=== PATIENT | male | born 1955 | race Two or more races ===

== ENCOUNTER 2020-04-25 13:39 | Emergency (ER) | payer MEDICARE, MEDICAID ==
[~2020-04-25] VITALS: Ht 167.6 cm; Wt 68.0 kg
[~2020-04-25 13:39] MED LIST: CEPHALEXIN500 MG ORAL; FLOMAX0.4 MG ORAL; IBUPROFEN600 M1 ORAL
[2020-04-25 14:00] VITALS: BP 127/81
--- NOTE | 2020-04-25 14:10 | NUR ---
ED Nurse Note: pt presents to ED from home c/o abd pain and CP. pt reports that the pain is in his R chest and is TTP, denies dyspnea at this time. pt was seen and treated for UTI previously, has been taking abx for a couple days. pt states that he was sleeping when CP began, has been taking ibuprofen at home with mild relief of symptoms. pain in abd is on the L side, pt also has dysuria at this time. pt is noted to be febrile, denies cough or SOB, no N/V/D
[2020-04-25] MEDS ORDERED: Ketorolac 30mg Inj IV ONE (14:30)
[2020-04-25] MEDS ORDERED: Omnipaque-300 100ml vial INJ PRN (14:30)
[2020-04-25] MEDS ORDERED: Acetaminophen 500mg (ES) tab ORAL ONE (14:30)
--- NOTE | 2020-04-25 14:30 | NUR ---
ED Nurse Note: pt is taking ibuprofen 800mg, tamsulosin and cephalexin for UTI symptoms
[2020-04-25 14:37] LABS: BASOPHILS % (AUTO) 1.2 % (0.0-2.0); EOSINOPHILS % (AUTO) 0.2 % (0.0-3.0); HEMATOCRIT 39.6 % (42.0-52.0); HEMOGLOBIN 13.3 G/DL (14.2-18.0); LYMPHOCYTES % (AUTO) 17.4 % (20.0-45.0); MEAN CORPUSCULAR VOLUME 91 FL (80-99); MONOCYTES % (AUTO) 7.2 % (1.0-10.0); PLATELET COUNT 113 K/UL (150-450); RED BLOOD COUNT 4.34 M/UL (4.70-6.10); RED CELL DISTRIBUTION WIDTH 12.5 % (11.6-14.8)
[2020-04-25 14:39] LABS: APPEARANCE,URINE SLIGHTLY CLOUDY; BILIRUBIN, URINE NEGATIVE (NEGATIVE); GLUCOSE, URINE (UA) NEGATIVE (NEGATIVE); KETONES,URINE 1+ (NEGATIVE); LEUKOCYTE ESTERASE ,URINE 3+ (NEGATIVE); NITRITE,URINE NEGATIVE (NEGATIVE); PH,URINE 6.5 (4.5-8.0); PROTEIN,URINE 2+ (NEGATIVE); UROBILINOGEN,URINE 1 MG/DL (0.0-1.0)
[2020-04-25 14:47] LABS: ANION GAP 12 mmol/L (5-15); BLOOD UREA NITROGEN 12 mg/dL (7-18); CALCIUM 8.1 MG/DL (8.5-10.1); CARBON DIOXIDE 21 MMOL/L (21-32); CHLORIDE 99 MMOL/L (98-107); CREATININE 1.1 MG/DL (0.55-1.30); POTASSIUM 4.3 MMOL/L (3.5-5.1); SODIUM 132 MMOL/L (136-145)
[2020-04-25 14:52] LABS: ALANINE AMINOTRANSFERASE 88 U/L (12-78); ALBUMIN/GLOBULIN RATIO 0.7 (1.0-2.7); ALKALINE PHOSPHATASE 96 U/L (46-116); ASPARTATE AMINO TRANSFERASE 65 U/L (15-37); BILIRUBIN,TOTAL 0.7 MG/DL (0.2-1.0)
[2020-04-25 14:53] LABS: COLOR,URINE YELLOW
--- NOTE | 2020-04-25 15:42 | NUR ---
ED Nurse Note: pt transported to CT via [facility]
--- NOTE | 2020-04-25 16:25 | Diagnostic Imaging Report ---
CT ABDOMEN AND PELVIS WITH CONTRAST INDICATION: Abdominal pain TECHNIQUE: Continuous helical transaxial imaging of the abdomen and pelvis was obtained from the lung bases to the pubic symphysis during intravenous contrast administration. Coronal 2-D reformats were also obtained. Study obtained in a Siemens sensation [address] Automatic Exposure Control was utilized. Total Dose length Product (DLP): 327.[address] Dose Index Volume (CTDIvol): 6.1 mGy COMPARISON: None FINDINGS: Lower chest:: Bibasilar right greater than left subsegmental atelectasis. Small hiatal hernia. Hepatobiliary:: Subcentimeter focal hypodensity in the peripheral right lobe is too small to accurately characterize on this examination. Gallbladder is unremarkable. Genitourinary:: Large left parapelvic cyst with resulting left renal caliectasis. The prostate is enlarged, and demonstrates abnormally prominent prosthetic urethral orifice. Adrenals:: Unremarkable. Pancreas:: Unremarkable. Gastrointestinal:: Appendix is normal. No evidence of obstruction. Scattered colonic diverticulosis without evidence of acute diverticulitis. Spleen: : Unremarkable. Peritoneum:: Unremarkable. Bones and soft tissues:: There are multilevel discogenic degenerative changes of the visualized spine. There is grade 1 anterolisthesis of L5 on S1 with associated bilateral pars fractures. There is approximately 25% loss of body height of L5, with associated endplate sclerosis. IMPRESSION: 1. Concentrically thickened urinary bladder wall, which may be due to chronic lateral obstruction but urinalysis is recommended to exclude cystitis. 2. Enlarged prostate with abnormal appearance of the prostatic urethra; correlation for history of transurethral procedure is recommended. Otherwise, consider further evaluation with cystoscopy, as prostatic malignancy or bladder wall mass cannot be excluded. 3. L5 compression fracture with associated grade 1 anterolisthesis and bilateral pars fractures, likely chronic given degree of associated sclerosis. 4. Colonic diverticulosis without evidence of acute diverticulitis. 5. Large left parapelvic cyst with resulting renal caliectasis, presumably secondary to mass effect on the ureteropelvic junction. The CT scanner at [facility] is accredited by the [employer] and the scans are performed using protocols designed to limit radiation exposure to as low as reasonably achievable to attain images of sufficient resolution adequate for diagnostic evaluation.
--- NOTE | 2020-04-25 16:41 | Diagnostic Imaging Report ---
Indication: Reason For Exam: Chest pain Technique: Single AP view of the chest. Comparison: None. Findings: The cardiomediastinal silhouette is within normal limits. There is no focal consolidation, pneumothorax or pleural effusion. There is mild diffuse peribronchial thickening. Osseous structures demonstrate no acute abnormality. IMPRESSION: Mild diffuse peribronchial thickening in the absence of airspace consolidation, which is a nonspecific finding but can be seen in association with infectious/inflammatory airways disease in the appropriate clinical context.
[2020-04-25 17:03] VITALS: BP 135/76
--- NOTE | 2020-04-25 17:03 | NUR ---
ER DISCHARGE NOTE: Patient is cleared to be discharged per ERMD, pt is aox4, on room air, with stable vital signs. pt was given dc instructions, pt was able to verbalize understanding, pt id band and iv site removed without complications. pt is able to ambulate with steady gait. pt took all belongings.
--- NOTE | 2020-04-25 17:31 | Emergency Room Report ---
History of Present Illness General Chief Complaint: Chest Pain Source: Patient Present Illness HPI 65-year-old male presents to the ED for evaluation. States he has been having chest pain since this morning. Left-sided, dull, 6 out of 10, nonradiating. Denies cough. Denies shortness of breath. Seen here yesterday for a UTI. Was prescribed antibiotics. He has been compliant with the medications. Has a fever. No other aggravating relieving factors. Denies any other associated symptoms Allergies: Coded Allergies: No Known Allergies (Unverified , 04/23/20) COVID-19 Screening Contact w/high risk pt: No Experienced COVID-19 symptoms?: Yes COVID-19 Testing performed [employer] RN: No Patient History Past Medical History: none Past Surgical History: none Pertinent Family History: none Social History: Denies: smoking, alcohol use, drug use Immunizations: UTD Reviewed Nursing Documentation: PMH: Agreed; PSxH: Agreed Nursing Documentation-PMH Past Medical History: No History, Except For Review of Systems All Other Systems: negative except mentioned in HPI Physical Exam Vital Signs Date Time Temp Pulse Resp B/P (MAP) Pulse Ox O2 Delivery O2 Flow Rate FiO2 04/25/20 13:51 102.0 117 20 127/81 (96) 94 Room Air Sp02 EP Interpretation: reviewed, normal General Appearance: no apparent distress, alert, GCS 15, non-toxic Head: normocephalic, atraumatic Eyes: bilateral eye normal inspection, bilateral eye PERRL ENT: hearing grossly normal, normal pharynx, no angioedema, normal voice Neck: full range of motion, supple/symm/no masses Respiratory: lungs clear, normal breath sounds, speaking full sentences, other - Reproducible left-sided chest pain Cardiovascular #1: regular rate, rhythm, no edema Cardiovascular #2: 2+ carotid (R), 2+ carotid (L), 2+ radial (R), 2+ radial (L), 2+ dorsalis pedis (R), 2+ dorsalis pedis (L) Gastrointestinal: normal bowel sounds, non tender, soft, non-distended, no guarding, no rebound Rectal: deferred Genitourinary: normal inspection, no CVA tenderness Musculoskeletal: back normal, normal range of motion, gait/station normal, non-tender Neurologic: alert, motor strength/tone normal, oriented x3, sensory intact, responsive, speech normal Psychiatric: judgement/insight normal, memory normal, mood/affect normal, no suicidal/homicidal ideation Reflexes: 3+ bicep (R), 3+ bicep (L), 3+ tricep (R), 3+ tricep (L), 3+ knee (R), 3+ knee (L) Skin: no rash Lymphatic: no adenopathy Medical Decision Making Diagnostic Impression: Primary Impression: UTI (urinary tract infection) Qualified Codes: N39.0 - Urinary tract infection, site not specified Additional Impression: Chest pain Qualified Codes: R07.9 - Chest pain, unspecified ER Course Hospital Course 65-year-old male presents with fever, chest pain Differential diagnoses include: Rib fracture, SC/unstable angina, contusion, muscle strain Clinical course Patient placed on stretcher. After initial history and physical I ordered labs, EKG, chest x-ray, meds, CT. labs reviewed- all electrolytes normal, troponins negative, no leukocytosis, hemoglobin/hematocrit stable Covid negative UA positive bacteria CXR - no acute process CT no acute process Patient does have a UTI which she has been prescribed antibiotics. Encouraged him to complete the antibiotics as prescribed. Safe for discharge and close outpatient follow-up. States he has a PMD I. I feel this is a highly complex case requiring extensive working including EKG/Rhythm strip, Xray/CT/US, Blood/urine lab work, repeat exams while in ED, and administration of strong opiates/narcotics for pain control, admission to hospital or close patient follow up. Diagnosis - chest pain, UTI Stable and discharged to home. Continue antibiotics as directed. Instructed to followup with PMD. Return to ED if symptoms recur or worsen Laboratory Tests Test 04/25/20 14:10 White Blood Count 5.0 K/UL (4.8-10.8) Red Blood Count 4.34 M/UL (4.70-6.10) L Hemoglobin 13.3 G/DL (14.2-18.0) L Hematocrit 39.6 % (42.0-52.0) L Mean Corpuscular Volume 91 FL (80-99) Mean Corpuscular Hemoglobin 30.7 PG (27.0-31.0) Mean Corpuscular Hemoglobin Concent 33.6 G/DL (32.0-36.0) Red Cell Distribution Width 12.5 % (11.6-14.8) Platelet Count 113 K/UL (150-450) L Mean Platelet Volume 8.7 FL (6.5-10.1) Neutrophils (%) (Auto) 74.0 % (45.0-75.0) Lymphocytes (%) (Auto) 17.4 % (20.0-45.0) L Monocytes (%) (Auto) 7.2 % (1.0-10.0) Eosinophils (%) (Auto) 0.2 % (0.0-3.0) Basophils (%) (Auto) 1.2 % (0.0-2.0) Urine Color Yellow Urine Appearance Slightly cloudy Urine pH 6.5 (4.5-8.0) Urine Specific [place] 1.010 (1.005-1.035) Urine Protein 2+ (NEGATIVE) H Urine Glucose (UA) Negative (NEGATIVE) Urine Ketones 1+ (NEGATIVE) H Urine Blood 5+ (NEGATIVE) H Urine Nitrite Negative (NEGATIVE) Urine Bilirubin Negative (NEGATIVE) Urine Urobilinogen 1 MG/DL (0.0-1.0) H Urine Leukocyte Esterase 3+ (NEGATIVE) H Urine RBC 2-4 /HPF (0 - 0) H Urine WBC 60-80 /HPF (0 - 0) H Urine Squamous Epithelial Cells Occasional /LPF Urine Bacteria Few /HPF (NONE) Sodium Level 132 MMOL/L (136-145) L Potassium Level 4.3 MMOL/L (3.5-5.1) Chloride Level 99 MMOL/L (98-107) Carbon Dioxide Level 21 MMOL/L (21-32) Anion Gap 12 mmol/L (5-15) Blood Urea Nitrogen 12 mg/dL (7-18) Creatinine 1.1 MG/DL (0.55-1.30) Estimat Glomerular Filtration Rate > 60 mL/min (>60) Glucose Level 176 MG/DL (74-106) H Calcium Level 8.1 MG/DL (8.5-10.1) L Total Bilirubin 0.7 MG/DL (0.2-1.0) Aspartate Amino Transf (AST/SGOT) 65 U/L (15-37) H Alanine Aminotransferase (ALT/SGPT) 88 U/L (12-78) H Alkaline Phosphatase 96 U/L (46-116) Troponin I 0.000 ng/mL (0.000-0.056) Total Protein 7.3 G/DL (6.4-8.2) Albumin 3.0 G/DL (3.4-5.0) L Globulin 4.3 g/dL Albumin/Globulin Ratio 0.7 (1.0-2.7) L EKG Diagnostic Results Troponin ordered: Yes Rate: normal Rhythm: NSR ST Segments: no acute changes ASA given to the pt in ED: No Rhythm Strip Diag. Results EP Interpretation: yes Rhythm: NSR, no PVC's, no ectopy Chest X-Ray Diagnostic Results Chest X-Ray Diagnostic Results : Chest X-Ray Ordered: Yes # of Views/Limited/Complete: 1 View Indication: Chest Pain EP Interpretation: Yes Interpretation: no consolidation, no effusion, no pneumothorax, no acute cardiopulmonary disease Impression: No acute disease Electronically Signed by: Electronically signed by Fredis Hernandez MD CT/MRI/US Diagnostic Results CT/MRI/US Diagnostic Results : Imaging Test Ordered: CT A/P Impression Total Dose length Product (DLP): 327.[address] Dose Index Volume (CTDIvol): 6.1 mGy COMPARISON: None FINDINGS: Lower chest:: Bibasilar right greater than left subsegmental atelectasis. Small hiatal hernia. Hepatobiliary:: Subcentimeter focal hypodensity in the peripheral right lobe is too small to accurately characterize on this examination. Gallbladder is unremarkable. Genitourinary:: Large left parapelvic cyst with resulting left renal caliectasi s. The prostate is enlarged, and demonstrates abnormally prominent prosthetic urethral orifice. Adrenals:: Unremarkable. Pancreas:: Unremarkable. Gastrointestinal:: Appendix is normal. No evidence of obstruction. Scattered colonic diverticulosis without evidence of acute diverticulitis. Spleen: : Unremarkable. Peritoneum:: Unremarkable. Bones and soft tissues:: There are multilevel discogenic degenerative changes of the visualized spine. There is grade 1 anterolisthesis of L5 on S1 with associated bilateral pars fractures. There is approximately 25% loss of body height of L5, with associated endplate sclerosis. IMPRESSION: 1. Concentrically thickened urinary bladder wall, which may be due to chronic lateral obstruction but urinalysis is recommended to exclude cystitis. 2. Enlarged prostate with abnormal appearance of the prostatic urethra; correlation for history of transurethral procedure is recommended. Otherwise, consider further evaluation with cystoscopy, as prostatic malignancy or bladder wall mass cannot be excluded. 3. L5 compression fracture with associated grade 1 anterolisthesis and bilateral pars fractures, likely chronic given degree of associated sclerosis. 4. Colonic diverticulosis without evidence of acute diverticulitis. 5. Large left parapelvic cyst with resulting renal caliectasis, presumably secondary to mass effect on the ureteropelvic junction. Last Vital Signs Date Time Temp Pulse Resp B/P (MAP) Pulse Ox O2 Delivery O2 Flow Rate FiO2 04/25/20 17:03 97.8 84 16 135/76 99 Room Air Status: improved Disposition: HOME, SELF-CARE Condition: Stable Referrals: [facility],REFERRING (PCP) Patient Instructions: Nonspecific Chest Pain, Dysuria Additional Instructions: continue your antibiotics as directed. followup with Fredis Angulo MD Apr 25, 2020 17:31
--- NOTE | 2020-04-26 15:56 | Cardiology Report ---
APPROVED REPORT EKG Measurement Heart [id number] <Conclusion> Sinus tachycardia Otherwise normal ECG
== END 2020-04-25 17:03 | disposition home or self-care (01) ==
LOC: EMR 14:30
DX: N39.0 Urinary tract infection, site not specified (principal); R07.89 Other chest pain; Z20.828 Contact with and (suspected) exposure to other viral communicable diseases
CPT/HCPCS: 36415; 71045; 74177; 80053; 81003; 84484; 85025; 87086; 93005; 96374; 96375; 99284; J1885; Q9965; S0028; U0002